=== PATIENT | male | born 1945 | race Two or more races ===

== ENCOUNTER 2022-10-06 09:53 | Emergency (ER) | payer OTHER ==
[~2022-10-06] VITALS: Ht 175.3 cm; Wt 73.0 kg
[~2022-10-06 09:53] MED LIST: AMLO5TAB4 PO; DIVA500T3 PO
[2022-10-06 12:07] LABS: BASOPHILS % 0.5 % (0.0-2.0); EOSINOPHILS % 0.6 % (0.0-5.0); HEMATOCRIT. 34.1 % (42.0-52.0); HEMOGLOBIN. 11.6 g/dL (14.0-18.0); LYMPHOCYTES % 23.6 % (20.0-50.0); MEAN CORPUSCULAR HEMOGLOBIN 31.8 pg (28.0-32.0); MEAN CORPUSCULAR VOLUME 93.5 fL (80.0-94.0); MEAN PLATELET VOLUME 8.1 fl (7.4-10.4); MONOCYTES % 10.3 % (2.0-8.0); PLATELET 223 x1000/uL (130-400); RED BLOOD CELL COUNT 3.64 mill/uL (4.7-6.1); RED CELL DISTRIBUTION WIDTH 14.1 % (11.6-14.6)
[2022-10-06 12:12] LABS: CHLORIDE 103 mEq/L (98-107); PROTHROMBIN TIME 10.7 sec (9.6-11.0)
[2022-10-06 18:51] VITALS: BP 156/87
== END 2022-10-06 19:28 | disposition short-term general hospital (02) ==
LOC: ER 09:53 → EDBEDREQTM 10:34 → EDBEDREQ 10:34 → EDBEDREQTM 16:37 → EDBEDREQ 16:37 → ER 19:28 → CANBEDREQ 10-07 10:53
DX: R55 Syncope and collapse (principal); N28.9 Disorder of kidney and ureter, unspecified; R41.0 Disorientation, unspecified; D64.9 Anemia, unspecified; I10 Essential (primary) hypertension; E11.9 Type 2 diabetes mellitus without complications
CPT/HCPCS: 36415; 71045; 80053; 84484; 85025; 93005; 99285

== ENCOUNTER 2024-02-16 08:42 | Emergency (ER) | payer OTHER ==
[~2024-02-16] VITALS: Ht 172.7 cm; Wt 82.0 kg
[2024-02-16 08:44] VITALS: O2SAT 100
[2024-02-16] MEDS ORDERED: METHYLPREDNISOLONE SOD SUCC 500 MG in DEXT 5% WATER 100 ML IV ONE (09:15)
[2024-02-16] MEDS: PREDNISONE 20MG TABLET PO ONE (09:29)
[2024-02-16] MEDS: DIPHENHYDRAMINE 50MG/ML VIAL IV ONE (09:30)
[2024-02-16 09:49] LABS: BASOPHILS % 0.4 % (0.0-2.0); CHLORIDE 102 mEq/L (98-107); EOSINOPHILS % 4.6 % (0.0-5.0); HEMATOCRIT. 38.9 % (42.0-52.0); HEMOGLOBIN. 12.9 g/dL (14.0-18.0); LYMPHOCYTES % 44.4 % (20.0-50.0); MEAN CORPUSCULAR HEMOGLOBIN 32.9 pg (28.0-32.0); MEAN CORPUSCULAR HGB CONC 33.2 g/dL (31.0-37.0); MEAN CORPUSCULAR VOLUME 99.2 fL (80.0-94.0); MEAN PLATELET VOLUME 8.9 fl (7.4-10.4); MONOCYTES % 9.5 % (2.0-8.0); NEUTROPHILS % 41.1 % (40.0-76.0); PLATELET 205 x1000/uL (130-400); POTASSIUM 3.9 mEq/L (3.5-5.1); RED BLOOD CELL COUNT 3.92 mill/uL (4.7-6.1); RED CELL DISTRIBUTION WIDTH 14.1 % (11.6-14.6); SODIUM 140 mEq/L (136-145); WHITE BLOOD COUNT 10.9 x1000/uL (4.5-11.0)
[2024-02-16 09:50] LABS: CALCIUM 10.4 mg/dL (8.7-10.4)
[2024-02-16 09:55] LABS: CREATININE 1.5 mg/dL (0.6-1.3); GLUCOSE 92 mg/dL (70-105); UREA NITROGEN BLOOD 24 mg/dL (9-23)
[2024-02-16 09:56] LABS: TROPONIN I HIGH SENSITIVITY 7 ng/L (3.0-53)
[2024-02-16 10:06] LABS: CARBON DIOXIDE 27 mEq/L (21-32)
[2024-02-16] MEDS ORDERED: DIPH25CA83 MT (14:22)
[2024-02-16] MEDS ORDERED: FAMO-135 MT (14:22)
[2024-02-16] MEDS ORDERED: P20 MT (14:22)
[2024-02-16 14:29] VITALS: BP 151/88; PULSE 97; RESP 17; TEMP 98
== END 2024-02-16 15:10 | disposition home or self-care (01) ==
LOC: ER 08:58 → CANBEDREQ 02-17 02:48
DX: T78.40XA Allergy, unspecified, initial encounter (principal); I10 Essential (primary) hypertension; E11.9 Type 2 diabetes mellitus without complications; X58.XXXA Exposure to other specified factors, initial encounter
CPT/HCPCS: 99285; 96374; 71045; 80048; 83880; 85025; 84484; 36415; 93005; J7512; J1200; J2930; J7060

== ENCOUNTER 2025-06-14 20:41 | Emergency (ER) | payer OTHER ==
[~2025-06-14] VITALS: Ht 172.7 cm; Wt 78.0 kg
[~2025-06-14 20:41] MED LIST changes: -AMLO5TAB4 PO; +AMLO5TAB6 PO; +DIPH25CA83 MT; +FAMO-135 MT; +P20 MT
[2025-06-14 20:46] VITALS: O2SAT 95
[2025-06-14] MEDS: SODIUM CHLORIDE 0.9% (SEPSIS BOLUS) IV ONE (21:42)
[2025-06-14] MEDS: PIPERACILLIN/TAZO 3.375G/50ML 50 ML IV ONE (21:48)
[2025-06-14] MEDS: ACETAMINOPHEN 325MG TABLET PO ONE (21:52)
[2025-06-14 22:19] LABS: HEMATOCRIT. 35.2 % (42.0-52.0); HEMOGLOBIN. 11.9 g/dL (14.0-18.0); MEAN PLATELET VOLUME 8.9 fl (7.4-10.4); PLATELET 202 x1000/uL (130-400); RED BLOOD CELL COUNT 3.66 mill/uL (4.7-6.1); RED CELL DISTRIBUTION WIDTH 14.2 % (11.6-14.6)
[2025-06-14 22:29] LABS: INR 1.0
[2025-06-14 22:31] LABS: CREATININE 1.6 mg/dL (0.6-1.3)
[2025-06-14 22:32] LABS: UREA NITROGEN BLOOD 24 mg/dL (9-23)
[2025-06-14 22:33] LABS: BAND% 1.0 % (1.0-6.0); LYMPHOCYTES % MANUAL 10.0 % (20.0-50.0); MONOCYTES % MANUAL 20.0 % (2.0-8.0); NEUTROPHILS % MANUAL 69.0 % (45.0-75.0); PLATELET ESTIMATE NORMAL
[2025-06-14 22:34] LABS: ASPARTATE AMINOTRANSFERASE 48 IU/L (<34); BILIRUBIN DIRECT 0.1 mg/dL (<=3.0); BILIRUBIN TOTAL 0.4 mg/dL (0.1-1.0); PROTEIN TOTAL 7.4 g/dL (6.0-8.3)
[2025-06-14] MEDS: VANCOMYCIN 1G PREMIX 200 ML IV ONE (22:34)
[2025-06-15 00:35] VITALS: BP 152/80; PULSE 75; RESP 15; TEMP 37.8; O2SAT 96
== END 2025-06-15 01:56 | disposition short-term general hospital (02) ==
LOC: ER 20:41 → CMPBEDREQ 06-15 07:27
DX: A41.9 Sepsis, unspecified organism (principal); U07.1 COVID-19; R79.82 Elevated C-reactive protein (CRP); F03.90 Unspecified dementia, unspecified severity, without behavioral disturbance, psychotic disturbance, mood disturbance, and anxiety; E11.9 Type 2 diabetes mellitus without complications; I10 Essential (primary) hypertension; Z79.899 Other long term (current) drug therapy
CPT/HCPCS: 99291; 96365; 96367; 80076; 80048; 83605; 83690; 83735; 85025; 85610; 87040; 84145; 71045; 93005; 87426; J2543; J3373; J7030